=== PATIENT | male | born 1995 | race Caucasian/White ===

== ENCOUNTER 2017-05-26 07:05 | Emergency (ER) | payer SELFPAY ==
[2017-05-26] MEDS ORDERED: ONDANSETRON 4 MG (ODT) TAB ONE (07:18)
[2017-05-26] MEDS ORDERED: DICYCLOMINE HCL 10 MG CAP ONE (07:40)
--- NOTE | 2017-05-26 08:39 | ER ---
Nurse's Notes [facility] Name: Marc Tovar Jr Age: 21 yrs Sex: Male : 1995 Arrival Date: 05/26/2017 Time: 07:06 Bed 6 Private MD: Diagnosis: Nausea with vomiting, unspecified Presentation: 05/26 07:13 Presenting complaint: Patient states: generalized abd pain that began three days ago ss with nausea and vomiting. Pain is described as stabbing, intermittent, and worse after eating. Transition of care: patient was not received from another setting of care. Onset of symptoms was May 23, 2017. Initial Sepsis Screen: Does the patient meet any 2 criteria? No. Patient's initial sepsis screen is negative. Does the patient have a suspected source of infection? No. Patient's initial sepsis screen is negative. Care prior to arrival: None. 07:13 Method Of Arrival: Ambulatory ss 07:13 Acuity: BURKE 3 ss Historical: - Allergies: 07:15 No Known Allergies; ss - Home Meds: 07:15 None [Active]; ss - PMHx: 07:15 None; ss - PSHx: 07:15 None; ss - Immunization history:: Adult Immunizations unknown. - Social history:: Smoking status: Patient uses tobacco products, smokes one pack cigarettes per day. Screenin:20 Abuse screen: Denies threats or abuse. Denies injuries from another. Nutritional sg screening: No deficits noted. Tuberculosis screening: No symptoms or risk factors identified. Never had TB. Fall Risk None identified. Assessment: 07:20 General: Appears in no apparent distress. comfortable, well groomed, well developed, sg well nourished, Behavior is calm, cooperative, appropriate for age. Pain: Complains of pain in left upper quadrant and left lower quadrant Pain does not radiate. Neuro: Level of Consciousness is awake, alert, obeys commands, Oriented to person, place, time, situation, Operations Processor are equal bilaterally Moves all extremities. Full function Gait is steady, Speech is normal. Cardiovascular: Heart tones S1 S2 present Capillary refill is brisk in bilateral fingers Patient's skin is warm and dry. Chest pain is denied. Respiratory: Airway is patent Respiratory effort is even, unlabored, Respiratory pattern is regular, symmetrical. GI: Abdomen is round non-distended, Bowel sounds present X 4 quads. Abd is soft and non tender X 4 quads. Reports lower abdominal pain, upper abdominal pain, nausea. : No signs and/or symptoms were reported regarding the genitourinary system. EENT: No signs and/or symptoms were reported regarding the EENT system. Derm: Skin is pink, warm \T\ dry. Musculoskeletal: No signs and/or symptoms reported regarding the musculoskeletal system. Vital Signs: 07:15 BP 132 / 81; Pulse 79; Resp 15; Temp 97.8(TE); Pulse Ox 99% on R/A; Weight 81.65 kg; ss Height 5 ft. 5 in. (165.10 cm); Pain 6/10; 07:46 BP 120 / 76 Supine; Pulse 82 MON; Pulse Ox 100% ; sg 07:46 BP 116 / 77 Standing; Pulse 87 MON; Pulse Ox 100% on R/A; sg 07:15 Body Mass Index 29.95 (81.65 kg, 165.10 cm) ED Course: 07:06 Patient arrived in ED. as 07:07 Mon[facility] Lopez [facility]C [facility]. snw 07:14 Triage completed. ss 07:15 Arm band placed on right wrist. ss 07:20 No provider procedures requiring assistance completed. Urine collected: clean catch sg specimen, isac colored. 07:22 Keyon Dunlap RN is Primary Nurse. sg 07:30 Patient has correct armband on for positive identification. Bed in low position. Call sg light in reach. Pulse ox on. NIBP on. Warm blanket given. Head of bed elevated. 08:25 Richard Pritchard MD is Attending Physician. snw 08:30 Patient did not have IV access during this emergency room visit. sg Administered Medications: 07:20 Drug: Zofran 4 mg Route: PO; sg 07:45 Drug: Bentyl 20 mg Route: PO; sg Outcome: 08:21 Discharge ordered by . snw 08:30 Discharged to home ambulatory, with family. sg 08:30 Condition: good 08:30 Discharge instructions given to patient, Instructed on discharge instructions, follow up and referral plans. medication usage, safety practices, Demonstrated understanding of instructions, follow-up care, medications, Prescriptions given X 1. 08:39 Patient left the ED. sg Signatures: Keyon Dunlap RN RN Monika Lopez FNP-C FNP-Csnw Viry Ratliff Shelby, RN RN ss
--- NOTE | 2017-05-26 08:39 | EDPHYS ---
Physician Documentation [facility] Name: Marc Tovar Jr Age: 21 yrs Sex: Male : 1995 Arrival Date: 05/26/2017 Time: 07:06 Bed 6 Private MD: ED Physician Richard Pritchard HPI: 05/26 07:35 This 21 yrs old Male presents to ER via Ambulatory with complaints of snw Abdominal Pain. 07:35 The patient presents with abdominal pain in the upper abdomen. Onset: The snw symptoms/episode began/occurred suddenly, 3 day(s) ago, and became persistent. The symptoms do not radiate. Associated signs and symptoms: Pertinent positives: nausea and vomiting. The symptoms are described as sharp. Severity of pain: At its worst the pain was moderate. The patient has not experienced similar symptoms in the past. The patient has not recently seen a physician. Historical: - Allergies: 07:15 No Known Allergies; ss - Home Meds: 07:15 None [Active]; ss - PMHx: 07:15 None; ss - PSHx: 07:15 None; ss - Immunization history:: Adult Immunizations unknown. - Social history:: Smoking status: Patient uses tobacco products, smokes one pack cigarettes per day. ROS: 07:35 Constitutional: Negative for fever, chills, and weight loss, Eyes: Negative for injury, snw pain, redness, and discharge, ENT: Negative for injury, pain, and discharge, Neck: Negative for injury, pain, and swelling, Cardiovascular: Negative for chest pain, palpitations, and edema, Respiratory: Negative for shortness of breath, cough, wheezing, and pleuritic chest pain, Back: Negative for injury and pain, : Negative for injury, bleeding, discharge, and swelling, MS/Extremity: Negative for injury and deformity, Skin: Negative for injury, rash, and discoloration, Neuro: Negative for headache, weakness, numbness, tingling, and seizure. 07:35 Abdomen/GI: Positive for abdominal pain, nausea and vomiting, of the right upper quadrant and left upper quadrant. Exam: 07:34 Constitutional: This is a well developed, well nourished patient who is awake, alert, snw and in no acute distress. Head/Face: Normocephalic, atraumatic. Eyes: Pupils equal round and reactive to light, extra-ocular motions intact. Lids and lashes normal. Conjunctiva and sclera are non-icteric and not injected. Cornea within normal limits. Periorbital areas with no swelling, redness, or edema. ENT: Nares patent. No nasal discharge, no septal abnormalities noted. Tympanic membranes are normal and external auditory canals are clear. Oropharynx with no redness, swelling, or masses, exudates, or evidence of obstruction, uvula midline. Mucous membranes moist. Neck: Trachea midline, no thyromegaly or masses palpated, and no cervical lymphadenopathy. Supple, full range of motion without nuchal rigidity, or vertebral point tenderness. No Meningismus. Chest/axilla: Normal chest wall appearance and motion. Nontender with no deformity. No lesions are appreciated. Cardiovascular: Regular rate and rhythm with a normal S1 and S2. No gallops, murmurs, or rubs. Normal PMI, no JVD. No pulse deficits. Respiratory: Lungs have equal breath sounds bilaterally, clear to auscultation and percussion. No rales, rhonchi or wheezes noted. No increased work of breathing, no retractions or nasal flaring. Back: No spinal tenderness. No costovertebral tenderness. Full range of motion. Skin: Warm, dry with normal turgor. Normal color with no rashes, no lesions, and no evidence of cellulitis. MS/ Extremity: Pulses equal, no cyanosis. Neurovascular intact. Full, normal range of motion. Neuro: Awake and alert, GCS 15, oriented to person, place, time, and situation. Cranial nerves II-XII grossly intact. Motor strength 5/5 in all extremities. Sensory grossly intact. Cerebellar exam normal. Normal gait. 07:34 Abdomen/GI: Inspection: abdomen appears normal, Bowel sounds: normal, Palpation: mild abdominal tenderness, in the right upper quadrant and left upper quadrant. Vital Signs: 07:15 BP 132 / 81; Pulse 79; Resp 15; Temp 97.8(TE); Pulse Ox 99% on R/A; Weight 81.65 kg; ss Height 5 ft. 5 in. (165.10 cm); Pain 6/10; 07:46 BP 120 / 76 Supine; Pulse 82 MON; Pulse Ox 100% ; sg 07:46 BP 116 / 77 Standing; Pulse 87 MON; Pulse Ox 100% on R/A; sg 07:15 Body Mass Index 29.95 (81.65 kg, 165.10 cm) ss MDM: 07:12 Patient medically screened. snw 08:24 Data reviewed: vital signs, nurses notes. Data interpreted: Pulse oximetry: on room air snw is 100 %. Interpretation: normal. Counseling: I had a detailed discussion with the patient and/or guardian regarding: the historical points, exam findings, and any diagnostic results supporting the discharge/admit diagnosis, the need for outpatient follow up, to return to the emergency department if symptoms worsen or persist or if there are any questions or concerns that arise at home, smoking cessation. Special discussion: Based on the patient's Hx, exam, and Dx evaluation, there is no indication for emergent surgery or inpatient Tx. It is understood by the patient/guardian that if the Sx's persist or worsen they need to return immediately for re-evaluation. Based on the history and exam findings, there is no indication for further emergent testing or inpatient evaluation. I discussed with the patient/guardian the need to see the primary care provider for further evaluation of the symptoms. 05/26 07:56 Order name: Urine Dipstick--Ancillary (enter results) eb 05/26 07:17 Order name: Urine Dipstick-Ancillary (obtain specimen); Complete Time: 07:30 snw 05/26 07:30 Order name: Orthostatics; Complete Time: 07:45 snw 05/26 07:52 Order name: PO challenge; Complete Time: 07:53 snw Administered Medications: 07:20 Drug: Zofran 4 mg Route: PO; sg 07:45 Drug: Bentyl 20 mg Route: PO; sg Disposition: 05/26/17 08:21 Discharged to Home. Impression: Nausea with vomiting, unspecified. - Condition is Stable. - Discharge Instructions: Clear Liquid Diet, Nausea and Vomiting. - Prescriptions for promethazine 25 mg Oral Tablet - take 1 tablet by ORAL route every 6 hours As needed; 20 tablet. - Work release form, Medication Reconciliation Form, Thank You Letter, Antibiotic Education, Prescription Opioid Use form. - Follow up: Emergency Department; When: As needed; Reason: Worsening of condition. Addendum: 06/19/2017 12:25 Co-signature as Attending Physician, Richard Pritchard MD available for consultation at p s1 all times. . Signatures: Dispatcher [employer] EDKeyon Mejia RN RN sg Monika Lopez, ONLINE CONTENT EDITOR-C ONLINE CONTENT EDITOR-Csnw Funmi Torres RN RN ss Richard Pritchard MD MD ps1 Corrections: (The following items were deleted from the chart) 05/26 08:39 08:21 05/26/2017 08:21 Discharged to Home. Impression: Nausea with vomiting, sg unspecified. Condition is Stable. Forms are Medication Reconciliation Form, Thank You Letter, Antibiotic Education, Prescription Opioid Use. Follow up: Emergency Department; When: As needed; Reason: Worsening of condition. snw
[2017-05-26 10:02] LABS: Urine Blood TRACE (NEG); Urine Glucose NEGATIVE (NEG); Urine Protein 1+ (NEG); Urine Specific Gravity 1.025 (1.005-1.030); Urine pH 6.5 (5.0-7.0)
== END 2017-05-26 08:39 | disposition home or self-care (01) ==
LOC: ER 07:05
DX: R11.2 Nausea with vomiting, unspecified (principal); F17.210 Nicotine dependence, cigarettes, uncomplicated
CPT/HCPCS: 81003; 99284

== ENCOUNTER 2019-04-14 10:46 | Emergency (ER) | payer SELFPAY ==
--- NOTE | 2019-04-14 12:15 | ER ---
Nurse's Notes [facility] Name: Marc Tovar Jr Age: 23 yrs Sex: Male : 1995 Arrival Date: 04/14/2019 Time: 10:48 Bed 26 Private MD: Diagnosis: Nausea;Acute upper respiratory infection, unspecified;Weakness;Tobacco abuse counseling;Tobacco use Presentation: 04/13 11:01 Chief complaint: Patient states: cough, runny nose and sore throat over the weekend. ss This morning patient began experiencing some dizziness. Coronavirus screen: The patient has NOT traveled to a country currently being monitored by the [facility] within the last 14 days. Proceed with normal triage procedures. Ebola Screen: Patient denies exposure to infectious person. Patient denies travel to an Ebola-affected area in the 21 days before illness onset. Initial Sepsis Screen: Does the patient meet any 2 criteria? No. Patient's initial sepsis screen is negative. Does the patient have a suspected source of infection? No. Patient's initial sepsis screen is negative. Risk Assessment: Do you want to hurt yourself or someone else? Patient reports no desire to harm self or others. 11:01 Method Of Arrival: Ambulatory ss 11:01 Acuity: BURKE 4 ss Historical: - Allergies: 11:03 No Known Allergies; ss - Home Meds: 11:03 None [Active]; ss - PMHx: 11:03 None; ss - PSHx: 11:03 None; ss - Immunization history:: Adult Immunizations unknown. - Social history:: Smoking status: Patient reports the use of cigarette tobacco products, smokes one-half pack cigarettes per day, Patient reports use of chewing tobacco. - Family history:: not pertinent. Screenin:01 Abuse screen: Denies threats or abuse. Denies injuries from another. Nutritional ss screening: No deficits noted. Tuberculosis screening: Never had TB. Fall Risk None identified. Assessment: 11:01 General: Appears in no apparent distress. comfortable, Behavior is calm, cooperative, ss Reports feeling ill for 2-3 days, fatigue for 2-3 days, Denies fever. Pain: Denies pain. Neuro: Level of Consciousness is awake, alert, obeys commands, Oriented to person, place, time, situation. Neuro: Reports dizziness that began this morning while at work. . Cardiovascular: Capillary refill < 3 seconds is brisk in bilateral fingers. Respiratory: Airway is patent Respiratory effort is even, unlabored, Respiratory pattern is regular, symmetrical. Respiratory: Reports cough that is non-productive. Respiratory: Denies shortness of breath. GI: Patient currently denies diarrhea, nausea, vomiting. : No signs and/or symptoms were reported regarding the genitourinary system. EENT: Oral mucosa is moist. Derm: Skin is intact, is healthy with good turgor, Skin is pink, warm \T\ dry. normal. Musculoskeletal: Circulation, motion, and sensation intact. Range of motion: intact in all extremities, Swelling absent. Vital Signs: 11:01 BP 136 / 96; Pulse 63; Resp 15; Temp 97.6(TE); Pulse Ox 99% on R/A; Weight 86.18 kg; ss Height 5 ft. 5 in. (165.10 cm); Pain 0/10; 11:01 Body Mass Index 31.62 (86.18 kg, 165.10 cm) ED Course: 10:48 Patient arrived in ED. rg4 11:02 Triage completed. 11:03 Marco Mondragon MD is Attending Physician. william 11:03 Arm band placed on left wrist. 11:48 Bed in low position. Call light in reach. Verbal reassurance given. Pulse ox on. NIBP jp3 on. 11:48 Strep Sent. jp3 11:48 Flu Sent. jp3 11:48 Flu and/or RSV swab sent to lab. Strep swab sent to lab. jp3 12:15 Funmi Torres, ROC is Primary Nurse. 12:23 No provider procedures requiring assistance completed. Patient did not have IV access ss during this emergency room visit. Administered Medications: 12:15 Drug: Zofran (Ondansetron) 4 mg Route: PO; 12:15 Drug: Zithromax 500 mg Route: PO; Outcome: 12:12 Discharge ordered by . william 12:23 Discharged to home ambulatory, with family. 12:23 Condition: good 12:23 Discharge instructions given to patient, family, Instructed on discharge instructions, follow up and referral plans. medication usage, Demonstrated understanding of instructions, follow-up care, medications, Prescriptions given X 2. 12:23 Patient left the ED. ss Signatures: Marco Mondragon MD MD cha Smirch, Shelby, RN RN ss Mala Luciano rg4 Amandeep Cary jp3
--- NOTE | 2019-04-14 12:16 | EDPHYS ---
Physician Documentation [facility] Name: Marc Tovar Jr Age: 23 yrs Sex: Male : 1995 Arrival Date: 04/14/2019 Time: 10:48 Bed 26 Private MD: ED Physician Marco Mondragon HPI: 04/13 12:06 This 23 yrs old Male presents to ER via Ambulatory with complaints of willaim Dizziness. 12:06 The patient presents with dizziness, generalized weakness. Onset: The symptoms/episode william began/occurred 3 day(s) ago. Context: occurred at home. Historical: - Allergies: 11:03 No Known Allergies; ss - Home Meds: 11:03 None [Active]; ss - PMHx: 11:03 None; ss - PSHx: 11:03 None; ss - Immunization history:: Adult Immunizations unknown. - Social history:: Smoking status: Patient reports the use of cigarette tobacco products, smokes one-half pack cigarettes per day, Patient reports use of chewing tobacco. - Family history:: not pertinent. ROS: 12:06 Constitutional: Negative for fever, chills, and weight loss, Eyes: Negative for injury, william pain, redness, and discharge, Neck: Negative for injury, pain, and swelling, Cardiovascular: Negative for chest pain, palpitations, and edema, Abdomen/GI: Negative for abdominal pain, nausea, vomiting, diarrhea, and constipation, Back: Negative for injury and pain, : Negative for injury, bleeding, discharge, and swelling, MS/Extremity: Negative for injury and deformity, Skin: Negative for injury, rash, and discoloration, Neuro: Negative for headache, weakness, numbness, tingling, and seizure, Psych: Negative for depression, anxiety, suicide ideation, homicidal ideation, and hallucinations, Allergy/Immunology: Negative for hives, rash, and allergies, Endocrine: Negative for neck swelling, polydipsia, polyuria, polyphagia, and marked weight changes, Hematologic/Lymphatic: Negative for swollen nodes, abnormal bleeding, and unusual bruising. 12:06 ENT: Positive for sore throat. 12:06 Respiratory: Positive for cough, "sounds productive". Exam: 12:06 Constitutional: This is a well developed, well nourished patient who is awake, alert, william and in no acute distress. Head/Face: Normocephalic, atraumatic. Eyes: Pupils equal round and reactive to light, extra-ocular motions intact. Lids and lashes normal. Conjunctiva and sclera are non-icteric and not injected. Cornea within normal limits. Periorbital areas with no swelling, redness, or edema. Neck: Trachea midline, no thyromegaly or masses palpated, and no cervical lymphadenopathy. Supple, full range of motion without nuchal rigidity, or vertebral point tenderness. No Meningismus. Chest/axilla: Normal chest wall appearance and motion. Nontender with no deformity. No lesions are appreciated. Cardiovascular: Regular rate and rhythm with a normal S1 and S2. No gallops, murmurs, or rubs. Normal PMI, no JVD. No pulse deficits. Abdomen/GI: Soft, non-tender, with normal bowel sounds. No distension or tympany. No guarding or rebound. No evidence of tenderness throughout. Back: No spinal tenderness. No costovertebral tenderness. Full range of motion. Male : Normal genitalia with no discharge or lesions. Skin: Warm, dry with normal turgor. Normal color with no rashes, no lesions, and no evidence of cellulitis. MS/ Extremity: Pulses equal, no cyanosis. Neurovascular intact. Full, normal range of motion. Neuro: Awake and alert, GCS 15, oriented to person, place, time, and situation. Cranial nerves II-XII grossly intact. Motor strength 5/5 in all extremities. Sensory grossly intact. Cerebellar exam normal. Normal gait. Psych: Awake, alert, with orientation to person, place and time. Behavior, mood, and affect are within normal limits. 12:06 ENT: Posterior pharynx: Tonsils: bilaterally enlarged, Uvula: normal, midline, erythema. 12:06 Respiratory: the patient does not display signs of respiratory distress, Respirations: normal, no acute changes, Breath sounds: rhonchi, that are moderate. Vital Signs: 11:01 BP 136 / 96; Pulse 63; Resp 15; Temp 97.6(TE); Pulse Ox 99% on R/A; Weight 86.18 kg; ss Height 5 ft. 5 in. (165.10 cm); Pain 0/10; 11:01 Body Mass Index 31.62 (86.18 kg, 165.10 cm) ss MDM: 11:03 [facility] medically screened[facility] 12[facility]09 Data reviewed: vital signs, nurses notes, lab test result(s). [facility] 04/13 11:40 Order name: Flu 04/13 11:40 Order name: Strep; Complete Time: 12:05 04/13 12:22 Order name: Throat Culture EDMS Administered Medications: 12:15 Drug: Zofran (Ondansetron) 4 mg Route: PO; 12:15 Drug: Zithromax 500 mg Route: PO; Disposition: 04/14/19 12:12 Discharged to Home. Impression: Nausea, Acute upper respiratory infection, unspecified, Weakness, Tobacco abuse counseling, Tobacco use. - Condition is Stable. - Discharge Instructions: Upper Respiratory Infection, Adult, Weakness, Tobacco Use Disorder, Weakness, [id number], Cough, Adult. - Prescriptions for Zofran 4 mg Oral Tablet - take 1 tablet by ORAL route every 12 hours As needed; 15 tablet. Zithromax Z- Glen 250 mg Oral Tablet - take 1 tablet by ORAL route as directed for 5 days Day 1 - take two (2) tablets one time. Day 2, 3, 4 , 5 take one (1) tablet once daily.; 6 tablet. - Medication Reconciliation Form, Thank You Letter, Antibiotic Education, Prescription Opioid Use, Work release form form. - Follow up: Private Physician; When: 2 - 3 days; Reason: Recheck today's complaints, Continuance of care, Re-evaluation by your physician. - Problem is new. - Symptoms have improved. Signatures: Dispatcher [employer] EDSD Marco Mondragon MD MD cha Smirch, Shelby, RN RN ss Corrections: (The following items were deleted from the chart) 12:13 12:12 04/14/2019 12:12 Discharged to Home. Impression: Nausea; Acute upper respiratory william infection, unspecified; Weakness. Condition is Stable. Forms are Medication Reconciliation Form, Thank You Letter, Antibiotic Education, Prescription Opioid Use. Follow up: Private Physician; When: 2 - 3 days; Reason: Recheck today's complaints, Continuance of care, Re-evaluation by your physician. Problem is new. Symptoms have improved. [facility] 12:23 12:13 04/14/2019 12:12 Discharged to Home. Impression: Nausea; Acute upper respiratory ss infection, unspecified; Weakness; Tobacco abuse counseling; Tobacco use. Condition is Stable. Discharge Instructions: Upper Respiratory Infection, Adult, Weakness, Weakness, [id number], Cough, Adult. Prescriptions for Zofran 4 mg Oral Tablet - take 1 tablet by ORAL route every 12 hours As needed; 15 tablet, Zithromax Z-Glen 250 mg Oral Tablet - take 1 tablet by ORAL route as directed for 5 days Day 1 - take two (2) tablets one time. Day 2, 3, 4 , 5 take one (1) tablet once daily.; 6 tablet. and Forms are Medication Reconciliation Form, Thank You Letter, Antibiotic Education, Prescription Opioid Use. Follow up: Private Physician; When: 2 - 3 days; Reason: Recheck today's complaints, Continuance of care, Re-evaluation by your physician. Problem is new. Symptoms have improved. william
[2019-04-14] MEDS ORDERED: AZITHROMYCIN 250 MG TAB ONE (12:19)
[2019-04-14] MEDS ORDERED: ONDANSETRON 4 MG (ODT) TAB ONE (12:19)
[2019-04-14 12:32] VITALS: BP 136/96; TEMP 97.6; O2SAT 99
== END 2019-04-14 12:23 | disposition home or self-care (01) ==
LOC: ER 10:46
DX: J06.9 Acute upper respiratory infection, unspecified (principal); R11.0 Nausea; R53.1 Weakness; Z72.0 Tobacco use; Z71.6 Tobacco abuse counseling
CPT/HCPCS: 87070; 87081; 87804; 99284